=== PATIENT | male | born 1980 | race African-American/Black ===

== ENCOUNTER 2023-05-03 06:21 | Emergency (ER) | payer SELFPAY | END 2023-05-03 10:19 | disposition left against medical advice (07) | LOC: EMS 06:23 → EDBD 06:23 → EMS 10:19 | DX: T50.901A Poisoning by unspecified drugs, medicaments and biological substances, accidental (unintentional), initial encounter (principal); R41.82 Altered mental status, unspecified; F19.10 Other psychoactive substance abuse, uncomplicated; Z76.5 Malingerer [conscious simulation]; Z59.00 Homelessness unspecified; Y92.89 Other specified places as the place of occurrence of the external cause | CPT/HCPCS: 99283; Z7502 ==